=== PATIENT | male | born 1945 | race Hispanic/Latino ===

== ENCOUNTER 2023-04-03 09:50 | Emergency (ER) | payer OTHER ==
[~2023-04-03] VITALS: Ht 175.3 cm; Wt 90.7 kg
[2023-04-03 10:16] LABS: BASOPHILS # (AUTO) 0.08 K/uL (0.00-0.20); BASOPHILS % (AUTO) 0.9 % (0.0-5.0); EOSINOPHILS # (AUTO) 0.47 K/uL (0.00-0.70); EOSINOPHILS % (AUTO) 5.2 % (0.0-8.0); HEMATOCRIT 45.7 % (42-54); IMMATURE GRANULOCYTE ABSOLUTE 0.06 K/uL (0-1); LYMPHOCYTES # (AUTO) 1.3 K/uL (1.0-4.8); MEAN CORPUSCULAR HGB CONC 33.3 g/dL (32.0-36.0); MEAN CORPUSCULAR VOLUME 90.1 fL (79-99); MONOCYTES # (AUTO) 0.8 K/uL (0.1-1.0); MONOCYTES % (AUTO) 8.6 % (3.0-13.0); NEUTROPHILS # (AUTO) 6.4 K/uL (1.8-7.7); NEUTROPHILS % (AUTO) 70.6 % (40.0-77.0); PLATELET COUNT (AUTO) 183 K/uL (130-400); RED BLOOD CELL COUNT(AUTO) 5.07 MIL/uL (4.50-6.20); RED CELL DISTRIBUTION WIDTH 14.4 % (11.0-15.5)
[2023-04-03 10:29] LABS: PROTHROMBIN TIME 11.6 SEC (9.6-11.6)
[2023-04-03 10:31] LABS: PARTIAL THROMBOPLASTIN TIME 29.1 SEC (26.3-35.5)
[2023-04-03 10:42] LABS: RAPID GROUP A STREP negative (NEGATIVE)
[2023-04-03 10:46] LABS: SARS-CoV-2, RNA, NAAT NEGATIVE SARS CoV-2 (NEGATIVE)
[2023-04-03 10:54] LABS: INFLUENZA TYPE A Negative For Type A (NEGATIVE); INFLUENZA TYPE B Negative For Type B (NEGATIVE)
[2023-04-03 11:22] LABS: APPEARANCE,URINE CLEAR (CLEAR); BILIRUBIN,URINE NEGATIVE (NEGATIVE); COLOR,URINE LIGHT-YELLOW (YELLOW); GLUCOSE, URINE (UA) NEGATIVE (NEGATIVE); KETONES,URINE NEGATIVE (NEGATIVE); LEUKOCYTE ESTERASE ,URINE NEGATIVE Leu/uL (NEGATIVE); NITRATE,URINE NEGATIVE (NEGATIVE); OCCULT BLOOD,URINE NEGATIVE (NEGATIVE); PH,URINE 6.5 (5.0-8.0); PROTEIN,URINE NEGATIVE (NEGATIVE); UROBILINOGEN,URINE 0.2 mg/dL (0.2-1.0)
[2023-04-03 11:25] LABS: CREATININE 1.1 mg/dL (0.5-1.5)
[2023-04-03 11:33] LABS: ALBUMIN 3.6 g/dL (3.5-5.0); BILIRUBIN,TOTAL 0.6 mg/dL (0.2-1.0); TOTAL PROTEIN, SERUM 7.3 g/dL (6.0-8.3)
[2023-04-03 11:33] LABS: ADD UA MICROSCOPIC NO
[2023-04-03 11:35] LABS: B-TYPE NATRIURETIC PEPTIDE 48 pg/mL (0-100)
[2023-04-03] MEDS ORDERED: LISI40TA9 PO (11:59)
[2023-04-03] MEDS ORDERED: AMLODIPINE 5 MG TAB PO STA (13:23)
[2023-04-03] MEDS ORDERED: AMLODIPINE 5 MG TAB ONE (13:24)
[2023-04-03] MEDS ORDERED: ASPIRIN 325MG TAB ONE (13:28)
[2023-04-03] MEDS ORDERED: ASPIRIN 325MG TAB PO STA (13:29)
[2023-04-03] MEDS ORDERED: AMLODIPINE 5 MG TAB PO ONE (16:30)
[2023-04-03 17:22] VITALS: BP 141/67; PULSE 71; RESP 18; O2SAT 99
== END 2023-04-03 17:47 | disposition short-term general hospital (02) ==
LOC: EDH 09:50
DX: I63.9 Cerebral infarction, unspecified (principal); I10 Essential (primary) hypertension; Z20.822 Contact with and (suspected) exposure to COVID-19; Z98.890 Other specified postprocedural states
CPT/HCPCS: 99285; 70551; 70450; 71045; 87635; 82550; 83721; 84484; 80053; 83880; 85025; 85610; 85730; 87880; 87804 ×2; 81003; 36415; 93005; C9803

== ENCOUNTER 2024-12-17 13:00 | Outpatient (CLI) | payer OTHER ==
--- NOTE | 2024-12-14 14:28 | EKG ---
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
[2024-12-14 14:31] VITALS: BP 195/71; PULSE 59; RESP 13; TEMP 97.3
[2024-12-14 14:37] LABS: NUCLEATED RED BLOOD CELLS 0.0 % (0.0-0.19); PLATELET COUNT (AUTO) 219.0 K/uL (130-400); RED BLOOD CELL COUNT(AUTO) 4.66 MIL/uL (4.50-6.20); RED CELL DISTRIBUTION WIDTH 14.9 % (11.0-15.5); WHITE BLOOD COUNT (AUTO) 9.2 K/uL (4.8-10.8)
[2024-12-14 14:52] LABS: INR 1.04 (0.85-1.15)
[2024-12-14 14:55] LABS: CREATININE 1.0 mg/dL (0.5-1.3); GLOMERULAR FILTR. RATE CALC 78.0 mL/min (>90); GLUCOSE,RANDOM 98.0 mg/dL (70-105); SODIUM SERUM 142.0 mmol/L (136-145); UREA NITROGEN, BLOOD 16.0 mg/dL (7-18)
--- NOTE | 2024-12-14 15:59 | NUR ---
REPORT DR LAY REVIEWED EKG. OK TO PROCEED
--- NOTE | 2024-12-14 16:12 | HMCIMG ---
CHEST 1VW REASON: R COMPARISON: Chest radiograph from 04/03/2023 is available. FINDINGS: Single view of the chest was obtained. Lungs are clear. Heart size is normal. There is early uncoiling atherosclerotic change of thoracic aorta. There is no pulmonary vascular congestion. Mediastinum and bony thorax appear unremarkable. IMPRESSION: 1. No acute cardiac pulmonary process and unchanged from prior study..
[~2024-12-17] VITALS: Ht 175.3 cm; Wt 88.5 kg
[2024-12-17 08:00] VITALS: BP 179/72; PULSE 60; RESP 18; TEMP 97.3
[~2024-12-17 13:00] MED LIST: APIX5TAB PO; ATOR40TA71 PO; CYCL-309 PO; GABA300C PO; HEParin-NS 1,000 UNIT/500 ML 0 ML IV ONE; LACTATED RINGERS 1000ML 1,000 ML IV ONE; LISI20TA24 PO; MVI PO; VIBE75TA PO
--- NOTE | 2024-12-17 14:18 | NUR ---
Pt states he wants to leave AMA. He states he waited too long and wants to leave. Bria Parry RN with Dr Busch/Dr Clark was notified of pt leaving AMA. Pt was educated on adverse complications associated with leaving against medical advice and pt still adamant on leaving. IV was removed, AMA form signed, pt family also made aware.
== END 2024-12-17 14:25 | disposition home or self-care (01) ==
LOC: DAH 13:00 → UNDODISIN 14:25
PROVIDERS: ATTEND Thoracic Surgery (Cardiothoracic Vascular Surgery)
DX: Z01.818 Encounter for other preprocedural examination (principal); I73.9 Peripheral vascular disease, unspecified; I70.0 Atherosclerosis of aorta; I49.1 Atrial premature depolarization; Z79.01 Long term (current) use of anticoagulants
CPT/HCPCS: 71045; 80048; 85027; 85610; 85730; 86850 ×2; 86900 ×2; 86901 ×2; 36415 ×2; 93005; A6260; A4663; J7120; A5120; A4215; A4213; A4222; A4221; A4216; A4223 ×2; G0378; J0690; J1644